=== PATIENT | female | born 1995 | race Caucasian/White ===

== ENCOUNTER 2018-01-04 15:05 | Emergency (ER) | payer OTHER ==
[2018-01-04 15:08] VITALS: BMI 24.7
[2018-01-04 15:13] VITALS: BP 132/86; PULSE 88; TEMP 99
--- NOTE | 2018-01-04 15:38 | PDOC ---
History of Present Illness <Sharath Camejo - Last Filed: 01/04/18 15:33> - General History Source: Patient Exam Limitations: No Limitations - History of Present Illness Initial Comments: 01/04/18 15:44 The patient is a 22 year old female with no significant past medical history who presents to the ED with complaints of cough for the past 2 weeks. The patient states her cough has worsened over the past three days where she finds herself getting into fits of coughing where she cannot catch her breath and often wakes her up at night. She reports her coughing fits causes her to gag and feel flushed. She describes the cough as productive with yellow phlegm. The patient has been treating the cough with cough syrup and hasnt gotten much relief. She reports she feels irritation on the right side of her throat as well. The patient also notes an episode of dull midsternal chest pain yesterday as well, and denies any associated palpitations or diaphoresis. The patient denies any recent travel or sick contacts. She denies any fever, chills, nausea , vomiting, diarrhea, or urinary symptoms. Medications: N/A Allergies: NKDA Social: Patient attends school. Denies any drug, alcohol or tobacco use. <Irma Tamayo - Last Filed: 01/04/18 15:53> - General Chief Complaint: Cold Symptoms Stated Complaint: COUGH Time Seen by Provider: 01/04/18 15:09 Past History - Past Medical History COPD: No Other medical history: DENIES - Suicide/Smoking/Psychosocial Hx Smoking History: Never smoked Have you smoked in the past 12 months: No Hx Alcohol Use: No Drug/Substance Use Hx: No Substance Use Type: None Hx Substance Use Treatment: No <Sharath Camejo - Last Filed: 01/04/18 15:33> <Irma Tamayo - Last Filed: 01/04/18 15:53> - Past Medical History Allergies/Adverse Reactions: Allergies Allergy/AdvReac Type Severity Reaction Status Date / Time No Known Allergies Allergy Verified 01/04/18 15:06 Home Medications: Ambulatory Orders Azithromycin [Zithromax 250mg Tablets -] 250 mg PO UTDICT #6 tab 01/04/18 Cetirizine HCl/Pseudoephedrine [Zyrtec-D Tablet] 1 each PO BID #14 tab.er.12h Review of Systems - Review of Systems Able to Perform ROS?: Yes Comments:: 01/04/18 15:44 CONSTITUTIONAL: Absent: fever, no chills, no fatigue EYES: Absent: visual changes ENT: Absent: ear pain, no sore throat CARDIOVASCULAR: Present: chest pain Absent: no palpitations RESPIRATORY: Present: productive cough GI: Absent: abdominal pain, no nausea, no vomiting, no constipation, no diarrhea GENITOURINARY: Absent: dysuria, no frequency, no hematuria MUSKULOSKELETAL: Absent: back pain, no arthralgia, no myalgia SKIN: Absent: rash NEURO: Absent: headache <Irma Tamayo - Last Filed: 01/04/18 15:53> *Physical Exam - Vital Signs Last Vital Signs Temp Pulse Resp BP Pulse Ox 99.0 F 88 16 132/86 100 01/04/18 15:05 01/04/18 15:05 01/04/18 15:05 01/04/18 15:05 01/04/18 15:05 <Sharath Camejo S - Last Filed: 01/04/18 15:33> - Vital Signs Last Vital Signs Temp Pulse Resp BP Pulse Ox 99.0 F 88 16 132/86 100 01/04/18 15:05 01/04/18 15:05 01/04/18 15:05 01/04/18 15:05 01/04/18 15:05 - Physical Exam Comments: 01/04/18 15:44 GENERAL: Well-appearing, well-nourished. No apparent distress. HEENT: Mildly erythematous oropharynx. Normocephalic, atraumatic. PERRL, EOM intact. CARDIOVASCULAR: Normal S1, S2. Regular rate and rhythm. PULMONARY: Few scattered wheezes in left upper lobe. ABDOMEN: Soft, non-distended, non-tender. EXTREMITIES: Normal ROM in all four extremities. No gross deformities. SKIN: Warm, dry. No rash NEUROLOGICAL: No focal neurological deficits. <Irma Tamayo - Last Filed: 01/04/18 15:53> Medical Decision Making - Medical Decision Making 01/04/18 15:53 MDM: 22 y/o female presents with 2 weeks of cough that worsened over the course of three days with yellow mucus. Denies fever or sick contacts, Denies flu vaccination. Denies tetanus vaccination. Most likely upper respiratory infection. Given length of time will send off prescription for Azithromycin. Will also advise to take zyrtec as decongestant. Advise for patient to invest in humidifier. <Irma Tamayo - Last Filed: 01/04/18 15:53> *DC/Admit/Observation/Transfer - Discharge Dispostion Admit: No <Sharath Camejo - Last Filed: 01/04/18 15:33> - Attestations Scribe Attestion: 01/04/18 15:49 Documentation prepared by Irma Tamayo, acting as medical reviewer for Sharath Camejo MD. <Irma Tamayo - Last Filed: 01/04/18 15:53> Diagnosis at time of Disposition: Bronchitis, URI, acute - Discharge Dispostion Disposition: HOME Condition at time of disposition: Stable - Prescriptions Prescriptions: Azithromycin [Zithromax 250mg Tablets -] 250 mg PO UTDICT #6 tab Cetirizine HCl/Pseudoephedrine [Zyrtec-D Tablet] 1 each PO BID #14 tab.er.12h - Patient Instructions Printed Discharge Instructions: DI for Acute Bronchitis, DI for Viral Upper Respiratory Infection -- Adult
== END 2018-01-04 15:43 | disposition home or self-care (01) ==
LOC: FER 15:05
DX: J40 Bronchitis, not specified as acute or chronic (principal); J06.9 Acute upper respiratory infection, unspecified
CPT/HCPCS: 99281-25

== ENCOUNTER 2018-06-07 08:28 | Emergency (ER) | payer OTHER ==
--- NOTE | 2018-06-07 08:38 | PDOC ---
History of Present Illness - General Chief Complaint: Bite Stated Complaint: RT HAND SWELLING Time Seen by Provider: 06/07/18 08:38 History Source: Patient Exam Limitations: No Limitations - History of Present Illness Initial Comments: 23 yo F no significant PMH presents with 1 day of swelling to R hand. She states that she suspected she was bitten by something yesterday, noticed some itching, but assumed it would improve by this morning. This morning she noted redness and swelling to the same hand. She is uncertain what bit her, no olsen present. It is itchy, not painful. No fever, no red streaks. Past History - Past Medical History Allergies/Adverse Reactions: Allergies Allergy/AdvReac Type Severity Reaction Status Date / Time No Known Allergies Allergy Verified 06/07/18 09:22 Home Medications: Ambulatory Orders NK [No Known Home Medication] 06/07/18 COPD: No - Suicide/Smoking/Psychosocial Hx Smoking History: Never smoked Have you smoked in the past 12 months: No Hx Alcohol Use: No Drug/Substance Use Hx: No Substance Use Type: None Hx Substance Use Treatment: No Review of Systems - Review of Systems Able to Perform ROS?: Yes Comments:: GENERAL/CONSTITUTIONAL: No fever or chills. No weakness. HEAD, EYES, EARS, NOSE AND THROAT: No change in vision. No ear pain or discharge. No sore throat. MUSCULOSKELETAL: No joint or muscle swelling or pain. No neck or back pain. SKIN: +Redness and swelling to R hand. NEUROLOGIC: No headache, vertigo, loss of consciousness, or change in strength/ sensation. ENDOCRINE: No increased thirst. No abnormal weight change. HEMATOLOGIC/LYMPHATIC: No anemia, easy bleeding, or history of blood clots. ALLERGIC/IMMUNOLOGIC: No hives or skin allergy. *Physical Exam - Physical Exam Comments: GENERAL: Awake, alert, and fully oriented, in no acute distress HEAD: No signs of trauma EYES: PERRLA, EOMI, sclera anicteric, conjunctiva clear ENT: Auricles normal inspection, hearing grossly normal, nares patent, oropharynx clear without exudates. Moist mucosa EXTREMITIES: Normal range of motion, no edema. No clubbing or cyanosis. No cords. NEUROLOGICAL: Cranial nerves II through XII grossly intact. Normal speech, normal gait SKIN: Warm, Dry, normal turgor. +Boggy swelling and erythema to the R hand, dorsal surface. No induration, no puncture olsen, no fluctuance. Medical Decision Making - Medical Decision Making 06/07/18 09:34 No signs of cellulitis at present. Stable for DC home. Returns precautions given - if hand becomes indurated or if she has fever, pain, lymphatic streaking. *DC/Admit/Observation/Transfer Diagnosis at time of Disposition: Insect bite Qualifiers: Encounter type: initial encounter Qualified Code(s): W57.XXXA - Bitten or stung by nonvenomous insect and other nonvenomous arthropods, initial encounter - Discharge Dispostion Disposition: HOME Condition at time of disposition: Stable Decision to Admit order: No - Referrals - Patient Instructions Printed Discharge Instructions: DI for Insect Allergy, DI for Insect Bites and Stings Additional Instructions: Benadryl by mouth. Hydrocortisone 1% cream, apply locally. Witch etienne may help with swelling as well. - Post Discharge Activity
[2018-06-07 08:48] VITALS: BP 125/75; PULSE 78; TEMP 99.1; BMI 24.7
== END 2018-06-07 09:35 | disposition home or self-care (01) ==
LOC: FER 08:28
DX: M79.89 Other specified soft tissue disorders (principal); W57.XXXA Bitten or stung by nonvenomous insect and other nonvenomous arthropods, initial encounter; Y93.89 Activity, other specified; Y92.9 Unspecified place or not applicable
CPT/HCPCS: 99281-25